=== PATIENT | male | born 1975 | race Two or more races ===

== ENCOUNTER 2020-01-03 13:24 | Emergency (ER) | payer OTHER ==
[~2020-01-03] VITALS: Ht 172.7 cm; Wt 76.3 kg
[2020-01-03 13:27] VITALS: BP 131/71
[2020-01-03] MEDS ORDERED: KETOROLAC 30 MG/1 ML IM ONE (14:00)
[2020-01-03] MEDS ORDERED: KETOROLAC 30 MG/1 ML ONE (14:15)
== END 2020-01-03 14:38 | disposition home or self-care (01) ==
LOC: ED 14:15
DX: S39.012A Strain of muscle, fascia and tendon of lower back, initial encounter (principal); X58.XXXA Exposure to other specified factors, initial encounter; Y93.89 Activity, other specified; Y92.89 Other specified places as the place of occurrence of the external cause; Y99.8 Other external cause status
CPT/HCPCS: 72110; 96372; 99283; J1885

== ENCOUNTER 2020-08-16 14:21 | Emergency (ER) | payer OTHER ==
[~2020-08-16] VITALS: Ht 172.7 cm; Wt 80.4 kg
--- NOTE | 2020-08-16 14:42 | NUR ---
RECEIVED PATIENT IN ROOM 18. PT C/O PALPITATIONS AND CHEST PRESSURE THAT CAME ON GRADUALLY WHILE WASHING HIS TRUCK THIS AFTERNOON AROUND 1PM. APPLIED CONTINUOUS CARDIAC AND SPO2 MONITORS WITH BP CUFF SET TO Q30 MINS.
[2020-08-16 15:00] LABS: BASOPHILS # (AUTO) 0.02 x10^3/uL (0-0.1); BASOPHILS % (AUTO) 0 % (0-1); EOSINOPHILS # (AUTO) 0.15 x10^3/uL (0-0.4); EOSINOPHILS % (AUTO) 2 % (1-7); LYMPHOCYTES # (AUTO) 2.26 x10^3/uL (1-3.4); LYMPHOCYTES % (AUTO) 22 % (22-44); MD NO; MEAN CORPUSCULAR HEMOGLOBIN 30.6 pg (27.5-34.5); MEAN CORPUSCULAR HGB CONC 33.2 g/dL (33.2-36.2); MEAN PLATELET VOLUME 7.9 fL (7.4-10.4); MONOCYTES # (AUTO) 0.69 x10^3/uL (0.2-0.8); MONOCYTES % (AUTO) 7 % (2-9); NEUTROPHILS # (AUTO) 7.16 x10^3/uL (1.8-6.8); NEUTROPHILS % (AUTO) 70 % (42-75); PLATELET COUNT 301 x10^3/uL (130-400); RED BLOOD COUNT 5.42 x10^6/uL (4.38-5.82); RED CELL DISTRIBUTION WIDTH 13.4 % (9.4-14.8)
[2020-08-16] MEDS ORDERED: ASPIRIN 81 MG TABLET CHEW PO ONE (15:00)
[2020-08-16] MEDS ORDERED: ASPIRIN 81 MG TABLET CHEW ONE (15:05)
--- NOTE | 2020-08-16 15:07 | NUR ---
PT MEDICATED WITH ASA. VS UPDATED.
[2020-08-16 15:12] LABS: ALBUMIN 4.2 g/dL (3.4-5.0); ANION GAP 7 mmol/L (5-15); CALCIUM 9.2 mg/dL (8.5-10.1); CHLORIDE 106 mmol/L (98-107); CREATININE 1.17 mg/dL (0.7-1.3)
[2020-08-16 15:16] LABS: TROPONIN I < 0.015 ng/mL (0.000-0.045)
[2020-08-16 16:00] VITALS: BP 120/88
--- NOTE | 2020-08-16 16:02 | NUR ---
Patient/Caregiver given discharge instructions and they have confirmed that they understand the instructions. Patient ambulatory with steady gait.
== END 2020-08-16 16:03 | disposition home or self-care (01) ==
LOC: ED 15:08
DX: R07.89 Other chest pain (principal); R06.02 Shortness of breath; M54.5 Low back pain; I10 Essential (primary) hypertension; Z86.73 Personal history of transient ischemic attack (TIA), and cerebral infarction without residual deficits
CPT/HCPCS: 36415; 71045; 80048; 82040; 84484; 85025; 93005; 99285